=== PATIENT | male | born 1950 | race Two or more races ===

== ENCOUNTER 2017-08-03 21:01 | Emergency (ER) | payer MEDICARE ==
[2017-08-03 21:08] VITALS: RESP 18
[2017-08-03] MEDS ORDERED: Sodium Chloride 0.9% 1,000 ML IV STA (21:30)
--- NOTE | 2017-08-03 21:40 | ED PDOC ---
HPI: Abdomen Time Seen by Provider: 08/03/17 21:21 Chief Complaint (Nursing): Back Pain Chief Complaint (Provider): flank pain History Per: Patient History/Exam Limitations: no limitations Onset/Duration Of Symptoms: Hrs (12) Current Symptoms Are (Timing): Still Present Location Of Pain/Discomfort: Other (left flank) Associated Symptoms: Nausea, Vomiting Additional Complaint(s): 67 y/o male presents for evaluation of intermittent left flank pain x 12 hours. Associated nausea/vomiting x 4; states every time he tried to eat or drink something today he vomited. Denies fever, chest pain, shortness of breath, palpitations, changes in bowel movements, urinary symptoms, numbness/weakness extremities. Past Medical History Reviewed: Historical Data, Nursing Documentation, Vital Signs Vital Signs: Last Vital Signs Temp 97.8 F 08/03/17 21:05 Pulse 96 H 08/03/17 21:05 Resp 18 08/03/17 21:05 BP 148/95 H 08/03/17 21:05 Pulse Ox 99 08/03/17 23:10 - Medical History PMH: Diabetes, HTN, Hypercholesterolemia - Surgical History Surgical History: Coronary Stent - Family History Family History: States: No Known Family Hx - Living Arrangements Living Arrangements: With Family - Home Medications Home Medications: Ambulatory Orders Medication Instructions Recorded Aspirin [Ecotrin] 1 tab PO DAILY 03/26/16 Atorvastatin [Lipitor] 1 tab PO DAILY 03/26/16 Dulaglutide [Trulicity] 03/26/16 Insulin Aspart [Novolog Flexpen] SUBCUT DAILY 03/26/16 Metoprolol Succinate XL [Toprol XL] 1 tab PO DAILY 03/26/16 Pregabalin [Lyrica] 1 tab PO DAILY 03/26/16 Famotidine [Pepcid] 20 mg PO BID #20 tab 08/04/17 Ondansetron ODT [Zofran ODT] 4 mg PO Q8 PRN #10 odt 08/04/17 - Allergies Allergies/Adverse Reactions: Allergies Allergy/AdvReac Type Severity Reaction Status Date / Time No Known Allergies Allergy Verified 08/03/17 21:05 Review of Systems ROS Statement: Except As Marked, All Systems Reviewed And Found Negative Gastrointestinal: Positive for: Nausea, Vomiting, Abdominal Pain Physical Exam - Reviewed Nursing Documentation Reviewed: Yes Vital Signs Reviewed: Yes - Physical Exam Appears: Positive for: Well, Non-toxic, No Acute Distress Head Exam: Positive for: ATRAUMATIC, NORMAL INSPECTION, NORMOCEPHALIC Skin: Positive for: Normal Color Eye Exam: Positive for: Normal appearance ENT: Positive for: Normal ENT Inspection Cardiovascular/Chest: Positive for: Regular Rate, Rhythm Respiratory: Positive for: Normal Breath Sounds Gastrointestinal/Abdominal: Positive for: Normal Exam, Bowel Sounds, Soft. Negative for: Tenderness Back: Positive for: Normal Inspection Extremity: Positive for: Normal ROM Neurologic/Psych: Positive for: Alert, Oriented - Laboratory Results Result Diagrams: 08/03/17 21:50 08/03/17 21:50 - ECG ECG: Positive for: Viewed By Me (reviewed by ED attending) ECG Rhythm: Positive for: Sinus Rhythm O2 Sat by Pulse Oximetry: 99 - Progress ED Course And Treament: labs, urine, CT EXAM: CT Abdomen and Pelvis Without Intravenous Contrast CLINICAL HISTORY: 67 years old, male; Pain; Abdominal pain; Flank; Left; Additional info: Left flank pain TECHNIQUE: Axial computed tomography images of the abdomen and pelvis without intravenous contrast. All CT scans at this facility use at least one of these dose optimization techniques: automated exposure control; mA and/or kV adjustment per patient size (includes targeted exams where dose is matched to clinical indication); or iterative reconstruction. Coronal and sagittal reformatted images were created and reviewed. COMPARISON: No relevant prior studies available. FINDINGS: Lung bases: Unremarkable. No mass. No consolidation. Heart: Coronary artery calcifications. ABDOMEN: Liver: 3 x 2.3 cm heterogeneous nodule in the lateral segment left hepatic lobe. Fatty infiltration of the liver. Gallbladder and bile ducts: Unremarkable. No calcified stones. No ductal dilation. Pancreas: Unremarkable. No ductal dilation. Spleen: Unremarkable. No splenomegaly. Adrenals: Unremarkable. No mass. Kidneys and ureters: Unremarkable. No stones within either kidney or ureter and no hydronephrosis. Stomach and bowel: Mild mucosal thickening in the rectum which may be due to its decompressed state but is indeterminate for malignancy given the appearance. Proctitis is also possible. Diverticulosis in the colon without evidence of diverticulitis. No obstruction. PELVIS: Appendix: Normal appendix. Bladder: Unremarkable. No stones. Reproductive: Unremarkable as visualized. ABDOMEN and PELVIS: Intraperitoneal space: Unremarkable. No free air. No significant fluid collection. Bones/joints: Degenerative disc disease lower lumbar spine. Degenerative facet throughout the lower lumbar spine. No acute fracture. No dislocation. Soft tissues: Unremarkable. Vasculature: Atherosclerotic disease. No abdominal aortic aneurysm. Lymph nodes: Unremarkable. No enlarged lymph nodes. IMPRESSION: 1. No stones within either kidney or ureter and no hydronephrosis. 2. 3 x 2.3 cm heterogeneous nodule in the lateral segment left hepatic lobe. Multiphase contrast enhanced CT or MRI evaluation could be performed if indicated. 3. Mild mucosal thickening in the rectum which may be due to its decompressed state but is indeterminate for malignancy given the appearance. Proctitis is also possible. Correlation with physical findings or colonoscopy could be performed if indicated. Patient given IV pepcid for "acid" feeling in epigastric area. Abdominal exam remains soft, nontender to palpation, nondistended On re-eval, patient states he is feeling better; tolerating PO Patient/family educated on findings, discharged with rx pepcid, zofran ADvised follow up PMD 2-3 days. Fluids. [place] diet Return precautions given Disposition - Clinical Impression Clinical Impression: Left flank pain, Abdominal pain - Patient ED Disposition Is Patient to be Admitted: No - Disposition Disposition: Routine/Home Disposition Time: 00:53 Condition: IMPROVED Prescriptions: Famotidine [Pepcid] 20 mg PO BID #20 tab Ondansetron ODT [Zofran ODT] 4 mg PO Q8 PRN #10 odt PRN Reason: Nausea/Vomiting Instructions: Flank Pain, Acute Abdomen (Belly Pain), Adult (DC) Forms: [employer] (Portuguese) Print Language: INDIAN
[2017-08-03 22:07] LABS: BASO % 0.2 % (0.0-2.0); EOS % 0.1 % (0.0-4.0); HEMOGLOBIN 17.9 g/dL (12.0-18.0); LYMPH # 1.6 K/uL (1.0-4.3); LYMPH % 13.6 % (20.0-40.0); MEAN CELL VOLUME 86.9 fl (80.0-94.0); MEAN CORPUSCULAR HEMOGLOBIN 29.1 pg (27.0-31.0); MEAN CORPUSCULAR HGB CONC 33.4 g/dL (33.0-37.0); MEAN PLATELET VOLUME 10.6 fl (7.2-11.7); MONO # 0.4 K/uL (0.0-0.8); MONO % 3.5 % (0.0-10.0); NEUT # 9.9 K/uL (1.8-7.0); NEUT % 82.6 % (50.0-75.0); RBC 6.15 Mil/uL (4.40-5.90); RED CELL DISTRIBUTION WIDTH 13.4 % (11.5-14.5)
[2017-08-03 22:09] LABS: SQUAMOUS EPITHIAL < 1 /hpf (0-5); URINE BACTERIA RARE (<OCC); URINE BILIRUBIN NEGATIVE (NEGATIVE); URINE BLOOD NEGATIVE (NEGATIVE); URINE CLARITY SLIGHTY-CLOUDY (Clear); URINE COLOR YELLOW (YELLOW); URINE GLUCOSE (UA) >=500 mg/dL (Normal); URINE LEUKOCYTE ESTERASE NEG Leu/uL (Negative); URINE PROTEIN 100 mg/dL (NEGATIVE); URINE UROBILINOGEN 0.2-1.0 mg/dL (0.2-1.0)
[2017-08-03 22:16] LABS: ALB/GLOB RATIO 1.1 (1.0-2.1); ALBUMIN 4.8 g/dL (3.5-5.0); CALCIUM 9.8 mg/dL (8.4-10.2); GFR AFRICAN-AMERICAN > 60; GFR NON-AFRICAN AMERICAN > 60
[2017-08-03 22:22] LABS: ALT/SGPT 91 U/L (21-72); AST/SGOT 87 U/L (17-59); BLOOD UREA NITROGEN 10 mg/dl (9-20)
[2017-08-03 22:35] LABS: LIPASE 329 U/L (23-300)
[2017-08-03] MEDS ORDERED: Famotidine 20mg/50ml Premix IVPB STA (22:57)
[2017-08-03] MEDS ORDERED: Famotidine 20mg/50ml 20 MG/50 ML BAG IVPB ONE (23:20)
[2017-08-04 01:03] VITALS: BP 123/82; PULSE 98; TEMP 98
[2017-08-04 01:04] VITALS: O2SAT 99
--- NOTE | 2017-08-04 08:08 | CARD ---
APPROVED REPORT EKG Measurement Heart [id number] <Conclusion> Normal sinus rhythm Left axis deviation Moderate voltage criteria for LVH, may be normal variant Prolonged QT Abnormal ECG
--- NOTE | 2017-08-04 11:32 | CT ---
PROCEDURE: CT Abdomen and Pelvis without intravenous contrast HISTORY: left flank pain COMPARISON: None. TECHNIQUE: Technique. Contrast dose: None Radiation dose: Total exam DLP = 902 mGy-cm. This CT exam was performed using one or more of the following dose reduction techniques: Automated exposure control, adjustment of the mA and/or kV according to patient size, and/or use of iterative reconstruction technique. FINDINGS: LOWER THORAX: Unremarkable lung bases. Extensive coronary artery calcifications LIVER: Approximately 2 to 3 mm lobulated liver lesion left hepatic lobe -mildly heterogeneous mostly hypo dense. Etiology unknown. Follow-up recommended. No ductal dilatation. GALLBLADDER AND BILE DUCTS: Unremarkable. PANCREAS: Unremarkable. No gross lesion or ductal dilatation. SPLEEN: Unremarkable. ADRENALS: Unremarkable. No mass. KIDNEYS AND URETERS: Unremarkable. No hydronephrosis. No solid mass. No urolithiasis. No hydroureter VASCULATURE: Atherosclerotic vascular calcifications present. . No aortic aneurysm. 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 No complicating diverticulitis suggested. No obstruction. Rectal mild circumferential mural thickening -significance unclear. Proctitis - neoplastic and/or top-normal variant/partial decompressed state or all differential considerations. Correlation with physical and clinical exam and follow-up recommended here as well APPENDIX: Unremarkable. Normal appendix. PERITONEUM: Unremarkable. No free fluid. No free air. LYMPH NODES: Unremarkable. No enlarged lymph nodes. BLADDER: Unremarkable. REPRODUCTIVE: Unremarkable. BONES: Degenerative disc disease and inferior lumbar spondylosis L3-4 and L4-5 - spinal stenosis compromises at these levels suggested degenerative changes in both hips right greater than left. Left calcific and lesser right calcific tendinopathy and/or calcific bursitis - ischial tuberosity levels. No prominent fluid component suggested OTHER FINDINGS: None. IMPRESSION: No urolithiasis. No hydronephrosis no hydroureter. Incidental left hepatic lobe indeterminate lesion as referenced above. An MRI of the liver with contrast for further characterisation is recommended. The patient is prior outside studies including ultrasound and/or abdomen of this area comparison with those studies to ensure stability is recommended. Moderate stool retention rectosigmoid colon redundancy with mild diverticulosis no complicating diverticulitis. Indeterminate findings regarding the rectal circumferential mild mural thickened appearance-differential considerations regarding the latter are as detailed above. Follow-up here is advised. Concordant results (preliminary interpretation) provided by [facility].
== END 2017-08-04 01:10 | disposition home or self-care (01) ==
LOC: H.ER 21:01
DX: R10.9 Unspecified abdominal pain (principal); E11.9 Type 2 diabetes mellitus without complications; E78.00 Pure hypercholesterolemia, unspecified; I10 Essential (primary) hypertension; Z79.4 Long term (current) use of insulin; Z79.82 Long term (current) use of aspirin; Z95.5 Presence of coronary angioplasty implant and graft
CPT/HCPCS: 74176; 80053; 81003; 82948; 83690; 85025; 87086; 93005; 96361; 96365; 96375; 99283; J1885; J2405; J7030

== ENCOUNTER 2018-03-23 01:48 | Emergency (ER) | payer MEDICARE ==
[2018-03-23] MEDS ORDERED: Sodium Chloride 0.9% 1,000 ML IV STA (02:08)
--- NOTE | 2018-03-23 02:18 | ED PDOC ---
HPI: Abdomen Time Seen by Provider: 03/23/18 01:54 Chief Complaint (Nursing): GI Problem Chief Complaint (Provider): GI Problem History Per: Patient History/Exam Limitations: no limitations Onset/Duration Of Symptoms: Days (x3) Associated Symptoms: Diarrhea Additional Complaint(s): 67 y/o male with history of HTN, CAD, diabetes, and hypercholesterolemia, presents to the ED complaining of diarrhea, onset x3 days ago. Patient reports symptoms started Wednesday and he was fine on Wednesday. However, earlier tonight he again developed recurrent diarrhea over the past few hours and has had 20-25 episodes of non-bloody watery diarrhea. Patient denies any recent travel as well nausea, vomiting, or fever. He does report some mild abdominal cramping pain but there is none at the moment. Past Medical History Reviewed: Historical Data, Nursing Documentation, Vital Signs Vital Signs: Last Vital Signs Temp 97.4 F L 03/23/18 01:59 Pulse 103 H 03/23/18 01:59 Resp 17 03/23/18 01:59 BP 122/83 03/23/18 01:59 Pulse Ox 98 03/23/18 01:59 - Medical History PMH: CAD, Diabetes, HTN, Hypercholesterolemia - Surgical History Surgical History: Coronary Stent Other surgeries: Right Toe Amputation - Family History Family History: States: Unknown Family Hx - Social History Current smoker - smoking cessation education provided: No Alcohol: None Drugs: Denies - Home Medications Home Medications: Ambulatory Orders Medication Instructions Recorded Aspirin [Ecotrin] 1 tab PO DAILY 03/26/16 Atorvastatin [Lipitor] 1 tab PO DAILY 03/26/16 Dulaglutide [Trulicity] 03/26/16 Insulin Aspart [Novolog Flexpen] SUBCUT DAILY 03/26/16 Metoprolol Succinate XL [Toprol XL] 1 tab PO DAILY 03/26/16 Pregabalin [Lyrica] 1 tab PO DAILY 03/26/16 Famotidine [Pepcid] 20 mg PO BID #20 tab 08/04/17 Ondansetron ODT [Zofran ODT] 4 mg PO Q8 PRN #10 odt 08/04/17 Dicyclomine [Bentyl] 20 mg PO Q12 PRN #20 tab 03/23/18 - Allergies Allergies/Adverse Reactions: Allergies Allergy/AdvReac Type Severity Reaction Status Date / Time shellfish derived Allergy DIARRHEA Verified 03/23/18 02:01 Review of Systems ROS Statement: Except As Marked, All Systems Reviewed And Found Negative Constitutional: Negative for: Fever Gastrointestinal: Positive for: Abdominal Pain, Diarrhea. Negative for: Nausea, Vomiting Physical Exam - Reviewed Nursing Documentation Reviewed: Yes Vital Signs Reviewed: Yes - Physical Exam Appears: Positive for: Well, Non-toxic, No Acute Distress Head Exam: Positive for: ATRAUMATIC, NORMAL INSPECTION, NORMOCEPHALIC Skin: Positive for: Normal Color, Warm, DRY Eye Exam: Positive for: EOMI, Normal appearance, PERRL ENT: Positive for: Other (Dry mucous membranes) Neck: Positive for: Normal, Painless ROM Cardiovascular/Chest: Positive for: Regular Rate, Rhythm, Tachycardia. Negative for: Murmur Respiratory: Positive for: Normal Breath Sounds. Negative for: Respiratory Distress Gastrointestinal/Abdominal: Positive for: Normal Exam, Soft. Negative for: Tenderness Back: Positive for: Normal Inspection Extremity: Positive for: Normal ROM. Negative for: Pedal Edema, Deformity Neurologic/Psych: Positive for: Alert, Oriented. Negative for: Motor/Sensory Deficits - Laboratory Results Result Diagrams: 03/23/18 02:20 03/23/18 02:20 - ECG O2 Sat by Pulse Oximetry: 98 (RA) Pulse Ox Interpretation: Normal Medical Decision Making Medical Decision Making: Time: 02:08 Initial Impression: 67 y/o with diarrheal illness Initial Plan: * Labs * IV Fluids * Bentyl 05:27 Labs reviewed show no clinically significant abnormalities. Patient is stable for discharge. Diagnosis is enteritis. Scribe Attestation: Documented by Raulito Nichole acting as a scribe for Stone Barajas MD. Provider Scribe Attestation: All medical record entries made by the Scribe were at my direction and personally dictated by me. I have reviewed the chart and agree that the record accurately reflects my personal performance of the history, physical exam, medic al decision making, and the department course for this patient. I have also personally directed, reviewed, and agree with the discharge instructions and disposition. Disposition - Clinical Impression Clinical Impression: Gastroenteritis - Patient ED Disposition Is Patient to be Admitted: No - Disposition Disposition: Routine/Home Disposition Time: 05:27 Condition: STABLE Additional Instructions: MICHELINE RODRIGUEZ, thank you for letting us take care of you today. Your provider was Stone Barajas MD and you were treated for DIARRHEA. The emergency medical care you received today was directed at your acute symptoms. If you were prescribed any medication, please fill it and take as directed. It may take several days for your symptoms to resolve. Return to the Emergency Department if your symptoms worsen, do not improve, or if you have any other problems. Please contact your doctor or call one of the physicians/clinics you have been referred to that are listed on the Patient Visit Information form that is included in your discharge packet. Bring any paperwork you were given at discharge with you along with any medications you are taking to your follow up visit. Our treatment cannot replace ongoing medical care by a primary care provider outside of the emergency department. Thank you for allowing the [facility] team to be part of your care today. If you had an X-Ray or CT scan: A Radiologist will review the ED reading if any change in treatment is needed we will contact you. If you had a blood, urine, or wound culture: It will take several days for the results, if any change in treatment is needed we will contact you. If you had an STI test: It will take 48 hours for the results. Please call after 1 week if you have not heard back. Prescriptions: Dicyclomine [Bentyl] 20 mg PO Q12 PRN #20 tab PRN Reason: diarrhea/abdominal pain Instructions: Diarrhea in Adolescents and Adults Forms: [employer] (Chinese) Print Language: NEPALI
[2018-03-23 02:40] LABS: BASO # 0.1 K/uL (0.0-0.2); BASO % 0.9 % (0.0-2.0); EOS # 0.3 K/uL (0.0-0.7); EOS % 2.5 % (0.0-4.0); HEMOGLOBIN 17.2 g/dL (12.0-18.0); LYMPH # 3.1 K/uL (1.0-4.3); LYMPH % 28.3 % (20.0-40.0); MEAN CELL VOLUME 87.5 fl (80.0-94.0); MEAN CORPUSCULAR HEMOGLOBIN 28.8 pg (27.0-31.0); MEAN CORPUSCULAR HGB CONC 32.9 g/dL (33.0-37.0); MEAN PLATELET VOLUME 10.7 fl (7.2-11.7); MONO # 1.1 K/uL (0.0-0.8); MONO % 9.8 % (0.0-10.0); NEUT # 6.3 K/uL (1.8-7.0); NEUT % 58.5 % (50.0-75.0); NRBC % 0.1 % (0.0-0.0); RBC 5.98 Mil/uL (4.40-5.90); RED CELL DISTRIBUTION WIDTH 13.8 % (11.5-14.5); WHITE BLOOD COUNT 10.8 K/uL (4.8-10.8)
[2018-03-23 02:52] LABS: ALB/GLOB RATIO 1.1 (1.0-2.1); ALBUMIN 4.2 g/dL (3.5-5.0); ALT/SGPT 50 U/L (21-72); AST/SGOT 54 U/L (17-59); BLOOD UREA NITROGEN 15 mg/dl (9-20); CALCIUM 9.5 mg/dL (8.4-10.2); GFR NON-AFRICAN AMERICAN > 60; LIPASE 105 U/L (23-300)
[2018-03-23 03:34] LABS: URINE BILIRUBIN NEGATIVE (NEGATIVE); URINE BLOOD NEGATIVE (NEGATIVE); URINE CLARITY CLOUDY (Clear); URINE COLOR AMBER (YELLOW); URINE GLUCOSE (UA) NEG (NEGATIVE); URINE HYALINE CAST 0-2 /hpf (0-2); URINE LEUKOCYTE ESTERASE NEG Leu/uL (Negative); URINE PROTEIN 100 mg/dL (NEGATIVE)
[2018-03-23] MEDS ORDERED: Atropine-Diphenoxylate 0.025-2.5 mg Tab PO ONE (04:30)
[2018-03-23 06:07] VITALS: BP 127/87; PULSE 86; RESP 18; TEMP 97.9; O2SAT 99
== END 2018-03-23 05:34 | disposition home or self-care (01) ==
LOC: H.ER 01:48
DX: K52.9 Noninfective gastroenteritis and colitis, unspecified (principal); E11.9 Type 2 diabetes mellitus without complications; E78.00 Pure hypercholesterolemia, unspecified; I10 Essential (primary) hypertension; Z79.4 Long term (current) use of insulin; Z95.5 Presence of coronary angioplasty implant and graft
CPT/HCPCS: 80053; 81003; 83690; 85025; 87070; 87804; 96360; 99284; J7030